=== PATIENT | male | born 1990 | race African-American/Black ===

== ENCOUNTER 2018-04-15 15:44 | Emergency (ER) | payer SELFPAY ==
[~2018-04-15] VITALS: Ht 175.3 cm; Wt 81.6 kg
[~2018-04-15 15:44] MED LIST: NAPR-243 PO
[2018-04-15] MEDS ORDERED: NAPR-1071 PO (16:41)
[2018-04-15] MEDS ORDERED: AMOX500C2 PO (16:41)
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
[2018-04-15] MEDS ORDERED: LIDOCAINE 2% VISCOUS 15 ML UDC PO ONE (16:45)
[2018-04-15 16:52] VITALS: BP 125/77
== END 2018-04-15 16:52 | disposition home or self-care (01) ==
LOC: EDUNIT# 15:44 → ER 15:47
DX: K05.20 Aggressive periodontitis, unspecified (principal); Z20.2 Contact with and (suspected) exposure to infections with a predominantly sexual mode of transmission; Z88.8 Allergy status to other drugs, medicaments and biological substances
CPT/HCPCS: 99282

== ENCOUNTER → 2018-12-09 | Emergency (ER) | payer SELFPAY ==
[~2018-12-09] VITALS: Ht 182.9 cm; Wt 88.6 kg
[~2018-12-09] MED LIST changes: +AMOX500C2 PO; +CEPH500T PO; +LACTATED RINGERS 1,000 ML IV ONE; +LIDOCAINE/EPI 1%-1:200,000 (XYLOCAINE) 10 ML VIAL INJ ONE; +LIDOCAINE/EPI 2% 1:100,00 (XYLOCAINE) 20 ML VIAL ONE; +NAPR-1071 PO; +TETANUS,DIPTH,PERTUSS P/F (BOOSTRIX) 0.5 ML VIAL IM STA
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
[2018-12-09 06:13] LABS: BASOPHILS # (AUTO) 0.1 10^3/uL (0.0-0.1); BASOPHILS % (AUTO) 1 % (0-10); EOSINOPHILS # (AUTO) 0.1 10^3/uL (0.0-0.3); EOSINOPHILS % (AUTO) 1 % (0-10); HEMATOCRIT 40 % (40-54); HEMOGLOBIN 14.2 G/DL (13.3-17.7); LYMPHOCYTES # (AUTO) 3.4 X 10^3 (1.0-4.0); LYMPHOCYTES % (AUTO) 32 % (12-44); MEAN CORPUSCULAR HEMOGLOBIN 30 PG (25-34); MEAN CORPUSCULAR HGB CONC 36 G/DL (32-36); MEAN CORPUSCULAR VOLUME 85 FL (80-99); MEAN PLATELET VOLUME 9.6 FL (7.4-10.4); MONOCYTES # (AUTO) 0.9 X 10^3 (0.0-1.0); MONOCYTES % (AUTO) 8 % (0-12); NEUTROPHILS # (AUTO) 6.3 X 10^3 (1.8-7.8); NEUTROPHILS % (AUTO) 59 % (42-75); PLATELET COUNT 212 10^3/uL (130-400); RED CELL DISTRIBUTION WIDTH 13.6 % (10.0-14.5); WHITE BLOOD COUNT 10.7 10^3/uL (4.3-11.0)
[2018-12-09 06:18] LABS: BILIRUBIN,URINE NEGATIVE (NEGATIVE); CLARITY,URINE CLEAR; COLOR,URINE YELLOW; GLUCOSE, URINE (UA) NEGATIVE (NEGATIVE); KETONES,URINE NEGATIVE (NEGATIVE); LEUKOCYTE ESTERASE ,URINE NEGATIVE (NEGATIVE); NITRITE,URINE NEGATIVE (NEGATIVE); PH,URINE 5 (5-9); PROTEIN,URINE NEGATIVE (NEGATIVE); UROBILINOGEN,URINE NORMAL (NORMAL)
[2018-12-09 06:25] LABS: BACTERIA,URINE NEGATIVE /HPF; SQUAMOUS EPITHELIAL CELL,UR 0-2 /HPF
[2018-12-09 06:27] LABS: PROTHROMBIN TIME PATIENT 13.3 SEC (12.2-14.7)
[2018-12-09 06:29] LABS: AMPHETAMINE SCREEN, URINE NEGATIVE (NEGATIVE); BARBITURATE SCREEN URINE NEGATIVE (NEGATIVE); BENZODIAZEPINES SCREEN URINE NEGATIVE (NEGATIVE); CANNABINOID SCREEN, URINE NEGATIVE (NEGATIVE); COCAINE SCREEN URINE NEGATIVE (NEGATIVE); METHADONE STAT NEGATIVE (NEGATIVE); METHAMPHETAMINE SCREEN URINE S NEGATIVE (NEGATIVE); OPIATE SCREEN URINE NEGATIVE (NEGATIVE); OXYCODONE STAT NEGATIVE (NEGATIVE); PROPOXYPHENE STAT NEGATIVE (NEGATIVE); TRICYCLIC ANTIDEPRESSANTS SCRE NEGATIVE (NEGATIVE)
[2018-12-09 06:33] LABS: ALANINE AMINOTRANSFERASE 22 U/L (0-55); ALBUMIN 4.5 GM/DL (3.2-4.5); ALKALINE PHOSPHATASE 51 U/L (40-136); BILIRUBIN,TOTAL 0.4 MG/DL (0.1-1.0); BUN/CREATININE RATIO 14; CALCIUM 8.9 MG/DL (8.5-10.1); CARBON DIOXIDE 20 MMOL/L (21-32); CHLORIDE 105 MMOL/L (98-107); CREATININE SERUM 0.94 MG/DL (0.60-1.30); GFR ESTIMATED > 60; GLUCOSE 96 MG/DL (70-105); POTASSIUM 3.5 MMOL/L (3.6-5.0); SODIUM 138 MMOL/L (135-145); TOTAL PROTEIN 6.7 GM/DL (6.4-8.2)
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
--- NOTE | 2018-12-09 07:30 | NUR ---
C COLLAR REMOVED BY DR CARTER
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
[2018-12-09 10:31] VITALS: BP 112/60
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
== END | disposition home or self-care (01) ==
LOC: EDUNIT# 05:46 → ER 05:48
DX: S09.90XA Unspecified injury of head, initial encounter (principal); S01.81XA Laceration without foreign body of other part of head, initial encounter; S60.211A Contusion of right wrist, initial encounter; S00.11XA Contusion of right eyelid and periocular area, initial encounter; F10.129 Alcohol abuse with intoxication, unspecified; R40.2142 Coma scale, eyes open, spontaneous, at arrival to emergency department; R40.2252 Coma scale, best verbal response, oriented, at arrival to emergency department; R40.2362 Coma scale, best motor response, obeys commands, at arrival to emergency department; F17.200 Nicotine dependence, unspecified, uncomplicated; Z98.890 Other specified postprocedural states; V18.4XXA Pedal cycle driver injured in noncollision transport accident in traffic accident, initial encounter
CPT/HCPCS: 12014; 36415; 70450; 70486; 71045; 72125; 80053; 80306; 80320; 81000; 85025; 85610; 85730; 90715

== ENCOUNTER → 2021-04-05 | Outpatient (CLI) | payer BC ==
[~2021-04-05] MED LIST changes: -LACTATED RINGERS 1,000 ML IV ONE; -LIDOCAINE/EPI 1%-1:200,000 (XYLOCAINE) 10 ML VIAL INJ ONE; -LIDOCAINE/EPI 2% 1:100,00 (XYLOCAINE) 20 ML VIAL ONE; -TETANUS,DIPTH,PERTUSS P/F (BOOSTRIX) 0.5 ML VIAL IM STA
[2021-04-05 14:25] LABS: SEMEN VOLUME 3.2 ML (1.5-5.0)
== END ==
LOC: LAB 13:42
PROVIDERS: ATTEND Nurse Practitioner
DX: N46.9 Male infertility, unspecified (principal)
CPT/HCPCS: 89320